=== PATIENT | female | born 1955 | race Caucasian/White ===

== ENCOUNTER 2018-10-02 12:45 | Outpatient (CLI) | payer MEDICARE ==
--- NOTE | 2018-10-02 14:33 | BD ---
DEXA BONE MINERAL DENSITY STUDY: HISTORY: Osteoporosis screening. COMPARISON: None. FINDINGS: Lumbar Spine: BMD (g/cm2) L1 0.942 T-Score: -0.4 1.2 L2 0.945 T-Score: -0.8 1.0 L3 0.915 T-Score: -1.5 0.4_ L4 1.061 T-Score: 0.0 1.9 L1-L4 0.970 T-Score: -0.7 1.1 WHO classification normal. Femoral Neck: 0.685 T-Score: -1.5 0.1 Total Femur: 0.997 T-Score: 0.5 1.7 WHO classification osteopenia. TEN-YEAR FRACTURE RISK: Major osteoporotic fracture: 11%. Hip fracture: 1.2%. Impression: Osteopenia left femoral neck with fracture risk as above. POS: C
--- NOTE | 2018-10-18 09:10 | MMO ---
Bilateral MAMMO Bilat Screen [facility]. CLINICAL HISTORY: Patient is 63 years old and is seen for screening. The patient has no family history of breast cancer. The patient has no personal history of cancer. VIEWS: The views performed were: bilateral craniocaudal with tomosynthesis and bilateral mediolateral oblique with tomosynthesis. MAMMOGRAM FINDINGS: There are scattered fibroglandular densities. There are no suspicious masses, suspicious calcifications, or new areas of architectural distortion. IMPRESSION: THERE IS NO MAMMOGRAPHIC EVIDENCE OF MALIGNANCY. A ROUTINE FOLLOW-UP MAMMOGRAM IN 1 YEAR IS RECOMMENDED. THE RESULTS OF THIS EXAM WERE SENT TO THE PATIENT. ACR BI-RADS Category 1 - Negative MAMMOGRAPHY NOTE: 1. A negative mammogram report should not delay a biopsy if a dominant of clinically suspicious mass is present. 2. Approximately 10% to 15% of breast cancers are not detected by mammography. 3. Adenosis and dense breasts may obscure an underlying neoplasm.
== END 2018-10-02 12:46 | disposition home or self-care (01) ==
LOC: BICMAMMO 12:45
PROVIDERS: ATTEND Student in an Organized Health Care Education/Training Program
DX: Z12.31 Encounter for screening mammogram for malignant neoplasm of breast (principal); Z13.820 Encounter for screening for osteoporosis; M85.89 Other specified disorders of bone density and structure, multiple sites
CPT/HCPCS: 77063; 77067; 77080

== ENCOUNTER 2018-10-29 09:42 | Outpatient (CLI) | payer MEDICARE ==
--- NOTE | 2018-10-29 10:49 | ULT ---
US Neck Soft Tissue History: [Hyperparathyroidism. Adenoma.] Comparison: None. Findings: Real-time grayscale and color evaluation of the neck was performed. There are colloid cysts within the thyroid. No parathyroid gland is appreciated. Impression: No parathyroid gland is appreciated.
--- NOTE | 2018-10-29 15:56 | NM ---
Radionuclide parathyroid scan: History: Hyperparathyroidism. Dose: 27.3 mCi of technetium 99m sestamibi. FINDINGS: Anterior, both oblique images obtained using immediate and 1 hour delayed images. Images demonstrate normal radioisotope uptake in the parotid glands, submandibular glands and thyroid lobes. There is an area of abnormal increased uptake seen in the inferior left neck below the margin of the left thyroid lobe. This may represent a lower left parathyroid adenoma. Correlate with dynamic parathyroid CT to confirm location of this possible parathyroid adenoma. IMPRESSION: Findings concerning for left lower neck parathyroid adenoma. Prior to surgical intervention additiona l pre and postcontrast enhanced dynamic CT images of neck recommended. Transcribed Date/Time: 10/29/2018 5:35 PM
== END 2018-10-29 09:43 | disposition home or self-care (01) ==
LOC: ULT 09:42
PROVIDERS: ATTEND Specialist
DX: E21.3 Hyperparathyroidism, unspecified (principal); Z98.890 Other specified postprocedural states
CPT/HCPCS: 76536; 78072; A9500

== ENCOUNTER 2018-11-14 08:56 | Outpatient (CLI) | payer MEDICARE ==
--- NOTE | 2018-11-14 10:41 | CT ---
Exam: PRE AND POSTCONTRAST SOFT TISSUE NECK CT: HISTORY: Hyperparathyroidism. Parathyroid adenoma suspected on recent nuclear medicine imaging COMPARISON: None. CORRELATION: Nuclear medicine parathyroid scan 10/29/18. FINDINGS: Visualized brain parenchyma is unremarkable. There is bilateral maxillary sinus disease. Aerodigestiv e tract is patent. No mucosal abnormality. Limited evaluation of the oral cavity due to dental amalgam artifact. Midline fatty raphae of the tongue is preserved. Epiglottis has a normal caliber. U nremarkable larynx. No prevertebral soft tissue swelling. Cervical spine vertebral body height is maintained. No fracture. Varying degrees of central canal foreign nosis and neural foraminal narrowing on the basis of degenerative change. Symmetric attenuation of the parotid and submandibular glands. Symmetric attenuation of sternocleidomastoid muscles. No evidence of lymphadenopathy by size criteria. Multiple subcentimeter hypodensities in the left thyroid lobe, incompletely evaluated. No evidence of lymphadenopathy by size criteria. The great vessels of the neck are patent Upper mediastinum is unremarkable. Patchy ground glass opacities in the visualized lung parenchyma. C orrelate for edema, infiltrate, or chronic process. There is an intrinsically isodense focus with evidence of enhancement on the 25, 65 second delayed se quences which may represent a small adenoma that is just deep to the medial aspect of the left clavicle. This lesion is felt to correspond to the finding on recent nuclear medicine imaging. Lesion is best demonstrated on series 3, 5, and 6 with axial image 154, 44, and 43, respectively. Additionally, lesion is noted on the sagittal reformatted images, series 602 image 98, series 601 angelica ge [id number] IMPRESSION: Parathyroid adenoma medial and slightly deep to the medial aspect of the left clavicle. Transcribed Date/Time: 11/14/2018 10:48 AM
== END 2018-11-14 08:57 | disposition home or self-care (01) ==
LOC: CT 08:56
PROVIDERS: ATTEND Specialist
DX: D35.1 Benign neoplasm of parathyroid gland (principal)
CPT/HCPCS: 70492; 82565

== ENCOUNTER 2023-06-07 09:06 | Outpatient (CLI) | payer MEDICARE | END 2023-06-07 09:07 | disposition home or self-care (01) | LOC: NM 09:06 | PROVIDERS: ATTEND Nurse Practitioner Family | DX: D49.7 Neoplasm of unspecified behavior of endocrine glands and other parts of nervous system (principal); D34 Benign neoplasm of thyroid gland | CPT/HCPCS: 78072; A9500 ==

== ENCOUNTER 2024-06-07 13:11 | Outpatient (CLI) | payer MEDICARE | END 2024-06-07 13:12 | disposition home or self-care (01) | LOC: BICMAMMO 13:11 | PROVIDERS: ATTEND Nurse Practitioner Family | DX: Z12.31 Encounter for screening mammogram for malignant neoplasm of breast (principal); M85.89 Other specified disorders of bone density and structure, multiple sites; Z78.0 Asymptomatic menopausal state | CPT/HCPCS: 77063; 77067; 77080 ==